=== PATIENT | male | born 1945 | race American Indian/Alaskan Native ===

== ENCOUNTER 2016-09-28 08:35 | Outpatient (CLI) | payer MEDICARE ==
--- NOTE | 2016-09-28 10:35 | XRay Report ---
CHEST 2 VIEWS INDICATION: Bronchitis. COMPARISON: None similar. FINDINGS: PA and lateral chest radiographs, 4 images, demonstrate normal cardiomediastinal silhouette. Clear, hyperexpanded lungs/COPD. No pleural effusions or CHF. Demineralized bones with multilevel thoracic spondylosis. CONCLUSION: COPD without acute chest process, as described. Thank you for the opportunity to participate in this patient's care.
--- NOTE | 2016-09-28 11:23 | Fluoroscopy Report ---
DOUBLE CONTRAST BARIUM ENEMA INDICATION: Fecal abnormalities. COMPARISON: None similar. FINDINGS: Preliminary radiograph demonstrates a nonobstructive bowel gas pattern. Demineralized bones with moderate multilevel spinal and bilateral hip degenerative changes. Using fluoroscopic guidance, the entire colon filled in retrograde fashion with barium and air. The colonic caliber and mucosal pattern are normal in appearance. No constricting lesions or fixed intraluminal masses identified. Few sigmoid and descending colon diverticuli. Some stool artifact also possible. Reflux identified into the terminal ileum. CONCLUSION: Mild diverticulosis; otherwise unremarkable air contrast barium enema. Thank you for the opportunity to participate in this patient's care.
== END 2016-09-28 08:36 | disposition home or self-care (01) ==
LOC: FLUORO 08:35
PROVIDERS: ATTEND Internal Medicine
DX: J44.0 Chronic obstructive pulmonary disease with (acute) lower respiratory infection (principal); J20.9 Acute bronchitis, unspecified; K57.30 Diverticulosis of large intestine without perforation or abscess without bleeding; M47.894 Other spondylosis, thoracic region
CPT/HCPCS: 71020; 74280